=== PATIENT | female | born 1980 | race American Indian/Alaskan Native ===

== ENCOUNTER 2016-10-14 09:46 | Inpatient (IN) | payer MEDICAID ==
[2016-10-14 10:29] LABS: BASO # 0.1 K/uL (0.0-0.2); BASO % 0.8 % (0.0-2.0); EOS # 0.3 K/uL (0.0-0.7); EOS % 3.9 % (0.0-4.0); HEMATOCRIT 34.3 % (34.0-47.0); LYMPH # 2.9 K/uL (1.0-4.3); LYMPH % 37.5 % (20.0-40.0); MEAN CELL VOLUME 85.7 fL (81.0-99.0); MEAN CORPUSCULAR HEMOGLOBIN 28.5 pg (27.0-31.0); MEAN CORPUSCULAR HGB CONC 33.3 g/dL (33.0-37.0); MEAN PLATELET VOLUME 8.9 fL (7.2-11.7); MONO # 0.6 K/uL (0.0-0.8); MONO % 7.6 % (0.0-10.0); RED CELL DISTRIBUTION WIDTH 14.3 % (11.5-14.5); WHITE BLOOD COUNT 7.8 K/uL (4.8-10.8)
[2016-10-14 10:37] LABS: CHLORIDE 102 mmol/L (98-107); POTASSIUM 3.5 mmol/L (3.6-5.2); SODIUM 138 mmol/L (132-148)
[2016-10-14 10:39] LABS: GFR AFRICAN-AMERICAN > 60
[2016-10-14 10:40] LABS: ALB/GLOB RATIO 1.3 (1.0-2.1); ALKALINE PHOSPHATASE 105 U/L (38-126); ALT/SGPT 29 U/L (9-52); AST/SGOT 22 U/L (14-36); BILIRUBIN,TOTAL 0.4 mg/dL (0.2-1.3); BLOOD UREA NITROGEN 6 mg/dL (7-17); CALCIUM 9.1 mg/dl (8.6-10.4); CARBON DIOXIDE 26 mmol/L (22-30); GLUCOSE,RANDOM 102 mg/dL (65-105); TOTAL PROTEIN 6.9 g/dL (6.3-8.3)
[2016-10-14 10:41] LABS: ALCOHOL SERUM < 10 mg/dl (0-10)
[2016-10-14 10:46] LABS: RBC URINE 4 /hpf (0-3); URINE BACTERIA MOD (<OCC); URINE BILIRUBIN NEGATIVE (NEGATIVE); URINE BLOOD NEGATIVE (NEGATIVE); URINE COLOR Amber (YELLOW); URINE GLUCOSE (UA) NORMAL (Normal); URINE KETONE NEGATIVE (NEGATIVE); URINE LEUKOCYTE ESTERASE NEG Leu/uL (Negative); URINE PROTEIN NEGATIVE (NEGATIVE); URINE UROBILINOGEN NORMAL mg/dL (0.2-1.0); WBC URINE 1 /hpf (0-5)
--- NOTE | 2016-10-14 11:35 | C.PDOC ---
History Of Present Illness 36 year old female presents to the emergency department seeking detox from oxycodone. Patient states last use was yesterday. Usually she takes 6 tabs/day. She denies any physical complaints, suicidal or homicidal ideations. Chief Complaint (Nursing): Psychiatric Evaluation History Per: Patient History/Exam Limitations: no limitations Suicide/Self Injury Attempted (Context): None Associated Symptoms: denies: Suicidal Thoughts, Suicidal Plan Involuntary Hold By: None Recent travel outside of the [place]: No Past Medical History Reviewed: Historical Data, Nursing Documentation, Vital Signs Vital Signs: Last Vital Signs Temp 97.6 F 10/14/16 18:22 Pulse 84 10/14/16 18:22 Resp 18 10/14/16 18:22 BP 111/77 10/14/16 18:22 Pulse Ox 98 10/14/16 18:22 Family History: States: Unknown Family Hx - Social History Hx Alcohol Use: No Hx Substance Use: Yes Review Of Systems Constitutional: Negative for: Fever, Chills Cardiovascular: Negative for: Chest Pain Respiratory: Negative for: Shortness of Breath Gastrointestinal: Negative for: Nausea, Vomiting, Abdominal Pain, Diarrhea Neurological: Negative for: Headache Psych: Negative for: Suicidal ideation Physical Exam - Physical Exam Appears: Non-toxic, No Acute Distress Skin: Warm, Dry Head: Atraumatic Eye(s): bilateral: Normal Inspection, EOMI Oral Mucosa: Moist Neck: Supple Chest: Symmetrical, No Deformity Cardiovascular: Rhythm Regular Respiratory: Normal Breath Sounds, No Accessory Muscle Use, No Rhonchi, No Wheezing Gastrointestinal/Abdominal: Soft, No Tenderness, No Distention, No Guarding, No Rebound Neurological/Psych: Oriented x3, Normal Speech, Normal Cognition ED Course And Treatment - Laboratory Results Result Diagrams: 10/14/16 10:20 10/14/16 10:20 O2 Sat by Pulse Oximetry: 98 (room air ) Progress Note: Patient was medically cleared. Patient was seen by crisis and was admitted for detox. Disposition - Disposition Disposition: HOSPITALIZED Disposition Time: 11:42 Condition: STABLE - Clinical Impression Clinical Impression: Opiate dependence - Scribe Statement The provider has reviewed the documentation as recorded by the Scribe Mary Daly All medical record entries made by the Scribe were at my direction and personally dictated by me. I have reviewed the chart and agree that the record accurately reflects my personal performance of the history, physical exam, medical decision making, and the department course for this patient. I have also personally directed, reviewed, and agree with the discharge instructions and disposition.
[2016-10-14] MEDS ORDERED: Aluminum Hydroxide/Magnesium Hydroxide Susp (30 mL) PO PRN (12:50)
--- NOTE | 2016-10-14 13:51 | PCM.PSYCH ---
Initial Psychiatric Evaluation - Initial Psychiatric Evaluation Type of Admission: Voluntary Legal Status: Capacity Chief Complaint (in patient's own words): "I need help" History of Present Illness and Precipitating Events: The patient is seen, chart reviewed and case discussed. This is a 36-year-old -[place]inamese female, single with 4 children aged 1, 10 , 14 and 17. The patient lives with them and works as a salesforce business analyst. The children are with her mother right now. The patient is here for OxyContin use. She admits to taking up to 180 mg of OxyContin every day for the past 3 years. She denies using heroin or other opioids. This is her first detox and she has never been to rehabilitation, Suboxone or methadone maintenance. She denies other drug use but smokes 10 cigarettes a day. She also denies alcohol use. She suffers from anxiety but not severe. Her urine is positive for cocaine and opioids. Past psych history: Denies Family psych history: Denies Medical history: Denies Current Medications: Active Medications Generic Name Dose Route Start Last Admin Trade Name Freq PRN Reason Stop Dose Admin Al Hydrox/Mg Hydrox/Simethicone 30 ml 10/14/16 12:50 Maalox 30 Ml PO TID PRN Indigestion / Heartburn Clonidine HCl 0.1 mg 10/14/16 12:50 Catapres PO Q8 PRN COWS Score More or Equal to 5 Gabapentin 300 mg 10/14/16 18:00 Neurontin PO BID BRYON Hydroxyzine HCl 25 mg 10/14/16 12:50 Atarax PO Q4H PRN Anxiety Loperamide HCl 2 mg 10/14/16 12:50 Imodium PO Q8 PRN Diarrhea Ondansetron HCl 4 mg 10/14/16 12:50 Zofran Tab PO Q8 PRN Nausea/Vomiting Trazodone HCl 100 mg 10/14/16 12:50 Desyrel PO HS PRN Insomnia Past Psychiatric History - Past Psychiatric History Previous Treatment History: None Pertinent Medical Hx (Current Medical&Sleep Prob, Allergies): Allergies Allergy/AdvReac Type Severity Reaction Status Date / Time shellfish derived Allergy Severe RASH Verified 10/14/16 09:51 oxyCODONE 10/14/16 Review of Systems - Neurological Neurological: UNREMARKABLE - Psychiatric Psychiatric: Abnormal Sleep Pattern, Anxiety, Change in Appetite, Difficulty Concentrating. absent: Hallucinations, Homicidal Ideation, Suicidal Ideation Mental Status Examination - Personal Presentation Personal Presentation: Looks stated age - Affect Affect: Constricted - Motor Activity Motor Activity: Calm - Reliability in Providing Information Reliability in Providing Information: Good - Speech Speech: Organized - Mood Mood: Anxious - Formal Thought Process Formal Thought Process: No Impairment - Cognitive Functions Orientation: Person, Place, Situation, Time Sensorium: Alert Attention/Concentration: Attentive Estimate of Intelligence: Average Judgement: Intact, as evidence by: Insight regarding need for hospitalization Memory: Recent intact, as evidence by: Ability to recall events of the day, Remote intact, as evidenced by: Abilit to recall sig. life events - Risk Risk: Withdrawal, Diminished functioning - Strength & Assets Inventory Strength & Assets Inventory: Family support, Employment history, Cooperative - Limitations Limitations: Other DSM 5 DX - DSM 5 DSM 5 Diagnosis: Opioid withdrawal Opioid use disorder, severe Cocaine use disorder, moderate - Recommended/Plan of Treatment Treatment Recommendations and Plan of Treatment: Subutex detox Support and psychoeducation Attend groups and activities MO and CBT Consider MAT after discharge Refer to IOP As needed medications Gabapentin for cocaine Also, MO and CBT for abstinence 32 minutes Projected ELOS: 4 days Prognosis: Good with treatment - Smoking Cessation Smoking Cessation Initiated: Yes
--- NOTE | 2016-10-14 14:14 | PCM.BM ---
Treatment Plan Problems - Problems identified on initial assessmt Opiate Dependencen Date Initiated: 10/14/16 Time Initiated: 02:00 Assessment reference: NA Status: Active Treatment assets and liabiliti Patient Assests: ADL independent Patient Liabilities: substance abuse - Milieu Protocol Maintain good personal hygiene: daily Encourage regular showers, daily Remind patient to perform daily oral care, daily Assist patient to perform ADL's Maintain personal safety: every shift Educate patient to report safety concerns to staff, every shift Monitor environment for contraband/sharps Medication safety: Monitor for expected outcome, potential side effects: every shift, Assess barriers to learning: every shift, Assess readiness for medication education: every shift Milieu Narrative: Subutex detox Support and psychoeducation Attend groups and activities NC and CBT Consider MAT after discharge Refer to IOP As needed medications Gabapentin for cocaine Also, NC and CBT for abstinence 32 minutes Discharge/Continuing Care - Treatment Team Participation Patient/Family/SO Statement: Subutex detox Support and psychoeducation Attend groups and activities NC and CBT Consider MAT after discharge Refer to IOP As needed medications Gabapentin for cocaine Also, NC and CBT for abstinence 32 minutes
[2016-10-14] MEDS ORDERED: Buprenorphine Hydrochloride 2 mg SL ONE (23:09)
[2016-10-15] MEDS: Buprenorphine Hydrochloride 2 mg SL SCH (13:16)
--- NOTE | 2016-10-15 22:42 | PCM.PYCHPN ---
Psychiatric Progress Note - Psychiatric Progress Note Patient seen today, length of contact: 17 min Patient Chief Complaint: I'm doing good Problems Identified/Issues Discussed: The pt is seen, chart reviewed, case discussed with staff. Support given, CBT and AL used briefly No new symptoms reported, improving slowly and needs more time No SEs from medications, risks discussed. After care discussed Diagnostic Results: Lab reviewed and noted DSM 5 Symptoms Update: Opioid withdrawal Opioid use disorder, severe Cocaine use disorder, moderate Medication Change: Yes (opioid detox taper) Medical Record Reviewed: Yes Mental Status Examination - Cognitive Function Orientation: Person, Place, Situation, Time Memory: Intact Attention: WNL Concentration: WNL Association: [facility] Fund of Knowledge: [facility] Decription of patient's judgement and insights: fair/fair - Mood Mood: Anxious - Affect Affect: Constricted - Speech Speech: Appropriate - Formal Thought Process Formal Thought Process: No Impairment - Suicidal Ideation Suicidal Ideation: No - Homicidal Ideation Homicidal Ideation: No Goal/Treatment Plan - Goal/Treatment Plan Need for Continued Stay: Discharge may exacerbated symptoms Progress Toward Problem(s) and Goals/Treatment Plan: Continue medications Support and psychoeducation daily Attend groups and activities daily After care planning by KAPIL Estimated Date of D/C: 10/18/16 - Smoking Cessation Smoking Cessation Initiated: Yes
[2016-10-16] MEDS: Buprenorphine Hydrochloride 2 mg SL SCH (09:27)
[2016-10-16] MEDS ORDERED: Buprenorphine Hydrochloride 2 mg SL SCH (11:45)
--- NOTE | 2016-10-16 18:05 | PCM.PYCHPN ---
Psychiatric Progress Note - Psychiatric Progress Note Patient seen today, length of contact: 17 min Patient Chief Complaint: I'm doing better Problems Identified/Issues Discussed: The pt is seen, chart reviewed, case discussed with staff. She reported she is doing better. Support given, CBT and [place] used briefly No new symptoms reported, improving slowly and needs more time No SEs from medications, risks discussed. After care discussed Diagnostic Results: Lab reviewed and noted Medication Change: Yes (subetex taper) Medical Record Reviewed: Yes Mental Status Examination - Cognitive Function Orientation: Person, Place, Situation, Time Memory: Intact Attention: WNL Concentration: WNL Association: [facility] Fund of Knowledge: [facility] Decription of patient's judgement and insights: fair/fair - Mood Mood: Anxious, Neutral - Affect Affect: Broad - Speech Speech: Appropriate - Formal Thought Process Formal Thought Process: No Impairment Psychotic Thoughts and Behaviors: no A/V/H - Suicidal Ideation Suicidal Ideation: No - Homicidal Ideation Homicidal Ideation: No Goal/Treatment Plan - Goal/Treatment Plan Need for Continued Stay: Discharge may exacerbated symptoms Progress Toward Problem(s) and Goals/Treatment Plan: Continue medications Support and psychoeducation daily Attend groups and activities daily After care planning by KAPIL Estimated Date of D/C: 10/18/16 - Smoking Cessation Smoking Cessation Initiated: Yes
[2016-10-17 06:36] VITALS: RESP 18
[2016-10-17] MEDS: Buprenorphine Hydrochloride 2 mg SL SCH (10:43)
[2016-10-17 11:06] VITALS: BP 99/65; PULSE 87; TEMP 98.1; O2SAT 99
--- NOTE | 2016-10-17 14:23 | PCM.PYCHDC ---
Mental Status Examination - Mental Status Examination Orientation: Person Memory: Intact Mood: Neutral Affect: Broad Speech: Appropriate Attention: WNL Concentration: WNL Association: WNL Fund of Knowledge: WNL Formal Thought Process: No Impairment Suicidal Ideation: No Current Homicidal Ideation?: No Discharge Summary - Discharge Note Reason for Hospitalization: Opioid use disorder, severe Cocaine use disorder, moderate Consultations:: List each consultation separately and include: 1. Reason for request. 2. Findings. 3. Follow-up Summary of Hospital Course include:: 1. Description of specific treatment plan utilized for patients during their course of treatmen. 2. Summarize the time- course for resolution of acute symptoms and/or regressed behaviors. 3. Describe issues identified and worked on during hospitalization. 4. Describe medication utilized. 5. Describe medical problems identified and treated. 6. Reassessment of suicide risk Summary of Hospital Course: The pt was admitted for OxyContin and Cocaine use and started on treatment with psychotherapy, support, psychoeducation and medications including: Subutex, Catapres, Neurontin, Atarax, Nicoderm patch and Trazodone. [place] and CBT used. The pt attended groups and activities, as well as milieu therapy. All the risks and benefits of medications are discussed and the patient understood and agreed. The pt improved with the treatments provided. After care discussed with the patient. - Final Diagnosis (DSM 5) Condition upon Discharge: STABLE Disposition: HOME/ ROUTINE Follow-up Treatment Plan: Continue below medications after discharge. Follow after care plan as discussed. Use relapse prevention skills Return to ER or call 911 if suicidal, homicidal or symptoms relapse. Stay away from stress, alcohol and drugs. See primary doctor once a year. Prescriptions/Medication Reconciliation: Gabapentin [Neurontin] 300 mg PO BID #60 cap traZODone [Desyrel] 100 mg PO HS PRN #30 tab PRN Reason: Insomnia - Smoking Cessation Smoking Cessation Medication prescribed: No - Antipsychotic Medications Pt discharged on 2 or more routine antipsychotic medications: No
== END 2016-10-17 13:15 | disposition home or self-care (01) | DRG 745 ==
LOC: C.ER 09:46 → C.7D 11:41
PROVIDERS: ADMIT Psychiatry & Neurology Psychiatry; ATTEND Psychiatry & Neurology Psychiatry
PROC: HZ2ZZZZ Detoxification Services for Substance Abuse Treatment (ICD-10-PCS; principal; 2016-10-14)
PROC: GZHZZZZ Group Psychotherapy (ICD-10-PCS; 2016-10-14)
PROC: GZ58ZZZ Individual Psychotherapy, Cognitive-Behavioral (ICD-10-PCS; 2016-10-14)
PROC: GZ56ZZZ Individual Psychotherapy, Supportive (ICD-10-PCS; 2016-10-14)
DX: F11.23 Opioid dependence with withdrawal (principal); F14.20 Cocaine dependence, uncomplicated; F17.210 Nicotine dependence, cigarettes, uncomplicated; F41.9 Anxiety disorder, unspecified